=== PATIENT | female | born 1980 | race Caucasian/White ===

== ENCOUNTER 2022-10-29 10:33 | Emergency (ER) | payer BC, SELFPAY ==
[2022-10-29 10:52] VITALS: BP 142/93; PULSE 83; RESP 18; TEMP 37.3; O2SAT 100; BMI 29.5
[2022-10-29 11:46] LABS: SARS-CoV-2 Ag NEGATIVE (NEGATIVE)
--- NOTE | 2022-10-29 14:13 | ED.GENADUL1 ---
HPI - General Adult General Chief complaint: Upper Respiratory Infection Stated complaint: HEADACHE, FEVER Time Seen by Provider: 10/29/22 13:12 Source: patient Mode of arrival: walk-in History of Present Illness HPI narrative: Patient is a 41-year-old female who is presenting to the Emergency Room with chief complaint of flulike symptoms. Patient's had a fever yesterday and today, patient's been lightheaded, dizzy, nausea yesterday and today with no vomiting. Patient does have a history of anemia, patient had a hysterectomy 2 years ago because of heavy bleeding. Patient drove to the accident. Patient was at a urgent care yesterday, patient had, testing and influenza test and it was negative yesterday. Patient has headache that is moderate pain, approximate 7/8-10. Patient's headache was not the worse headache of her life, not sudden onset, not thunderclap in nature. Patient took Tylenol this morning with no relief. Patient has right-sided neck pain. No chest pain or shortness of breath. Nausea no vomiting, diarrhea positive. 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 . All systems are negative except as noted/marked. All systems reviewed and otherwise negative. . Nurses note and vital signs reviewed and patient is not hypoxic. General: The patient appears well and in no apparent distress. Patient is resting comfortably on cart. Patient is not toxic, lethargic, or listless Skin: Warm, dry, + pallor noted. There is no rash noted. No petechiae, purpura. Head: Normocephalic, atraumatic, Patient has mild tenderness to palpation to the right paralumbar soft tissue. Full range of motion of cervical spine with minimal pain. No meningeal signs or symptoms. Eye: + pale conjunctiva, no drainage, EOMI. PERRL. Ears, Nose, Mouth, and Throat: oral mucosa is moist. Nares patent. Mouth without vesicles. Patient has pale mucous membranes underneath her tongue as well. Cardiovascular: Regular Rate and Rhythm, no murmur, gallop, rub Respiratory: Patient is in no distress, no accessory muscle use, lungs are clear to auscultation, no wheezing, rales or rhonchi Back: non-tender, no CVA tenderness bilaterally to percussion. No CT LS midline pain GI: soft, no tenderness to palpation, no masses appreciated. No rebound, guarding, or rigidity noted. No flank pain bilateral, No distention Musculoskeletal: Patient has full range of motion of all of the extremities, no motor, sensory, or focal neurological deficits Neurological: A&O x3, normal speech Psychiatric: Cooperative Related Data Previous Rx's Medication Instructions Recorded metoclopramide HCl 10 mg tablet 10 mg PO Q6H PRN nausea and 10/29/22 (Reglan) vomiting 3 days #7 tabs Allergies Allergy/AdvReac Type Severity Reaction Status Date / Time cephalexin [From Keflex] AdvReac Intermediate Verified 10/29/22 10:52 Exam Constitutional Vital Signs, click to edit/add: Last Vital Signs Temp 99.2 F 10/29/22 10:52 Pulse 83 10/29/22 10:52 Resp 18 10/29/22 10:52 BP 142/93 H 10/29/22 10:52 Pulse Ox 100 10/29/22 10:52 O2 Del Method Room Air 10/29/22 10:52 Course Vital Signs Vital signs: Vital Signs Temperature 99.2 F 10/29/22 10:52 Pulse Rate 83 10/29/22 10:52 Respiratory Rate 18 10/29/22 10:52 Blood Pressure 142/93 H 10/29/22 10:52 Pulse Oximetry 100 10/29/22 10:52 Oxygen Delivery Method Room Air 10/29/22 10:52 Temperature 99.2 F 10/29/22 10:52 Pulse Rate 83 10/29/22 10:52 Respiratory Rate 18 10/29/22 10:52 Blood Pressure 142/93 H 10/29/22 10:52 Pulse Oximetry 100 10/29/22 10:52 Oxygen Delivery Method Room Air 10/29/22 10:52 Medical Decision Making [facility] Narrative Medical decision making narrative: Patient has a history of anemia, she does not take iron daily. Patient looks well, has pale conjunctiva, lids, and mucous membranes underneath her tongue. Secondary to having headache, patient had IV established. Patient will be given IV fluids, IV Toradol, Tylenol, and help relieve her symptoms. Patient does have myalgia and arthralgia. Patient's nausea is improved. Patient's headache is improved. Patient is not anemic despite looking pale. Patient's potassium was 3.3, she was given oral potassium to drink. Patient was sent home with prescription for Reglan. Patient will follow-up with PCP. No questions at discharge Lab Data Lab results reviewed: Yes I reviewed the patient's lab results Labs: Lab Results 10/29/22 10/29/22 Range/Units 11:00 14:25 WBC 4.0 (4.0-11.0) 10^3/uL RBC 4.18 L (4.20-5.40) 10^6/uL Hgb 11.9 L (12.0-16.0) g/dL Hct 36.7 (36.0-48.0) % MCV 87.8 (81.0-99.0) fL MCH 28.5 (26.7-34.0) pg MCHC 32.4 (29.9-35.2) g/dL RDW 14.0 (11.0-15.0) % Plt Count 127 L (150-450) 10^3/uL MPV 10.3 (9.5-13.5) fL Neut % (Auto) 63.2 (43.0-75.0) % Lymph % (Auto) 27.4 (20.5-60.0) % [place] % (Auto) 7.0 (1.7-12.0) % Eos % (Auto) 1.5 (0.9-7.0) % Baso % (Auto) 0.7 (0.2-2.0) % Neut # (Auto) 2.5 (1.4-6.5) 10^3/uL Lymph # (Auto) 1.1 L (1.2-3.8) 10^3/uL [place] # (Auto) 0.3 (0.3-0.8) 10^3/uL Eos # (Auto) 0.1 (0.0-0.7) 10^3/uL Baso # (Auto) 0.0 (0.0-0.1) 10^3/uL Abs Immat Gran (auto) 0.01 (0.00-0.03) 10^3/uL Imm/Tot Granulo (auto) 0.2 (0.0-0.5) % Sodium 138 (136-145) mmol/L Potassium 3.3 L (3.5-5.1) mmol/L Chloride 106 (98-107) mmol/L Carbon Dioxide 27.1 (21.0-32.0) mmol/L Anion Gap 8.2 BUN 11.0 (7.0-18.0) mg/dL Creatinine 0.63 (0.55-1.02) mg/dL Est GFR ( Amer) >60 (>=60) Est GFR (Non-Af Amer) >60 (>=60) BUN/Creatinine Ratio 17.5 Glucose 80 (74-106) mg/dL Calcium 8.8 (8.5-10.1) mg/dL Magnesium 2.1 (1.8-2.4) mg/dL Total Bilirubin 0.4 (0.2-1.0) mg/dL AST 22 (15-37) U/L ALT 20 (14-59) U/L Alkaline Phosphatase 57 (46-116) U/L Total Protein 6.5 (6.4-8.2) g/dL Albumin 3.4 (3.4-5.0) g/dL Globulin 3.1 g/dL Albumin/Globulin Ratio 1.1 SARS-CoV-2 (PCR) Negative (NEGATIVE) Discharge Plan Discharge Chief Complaint: Upper Respiratory Infection Clinical Impression: Headache, Flu-like symptoms, Nausea Patient Disposition: Home, Self-Care Condition: Fair Prescriptions / Home Meds: New metoclopramide HCl [Reglan] 10 mg tablet 10 mg PO Q6H PRN (Reason: nausea and vomiting) 3 Days Qty: 7 0RF Instructions: Acute Headache (ED), Acute Nausea and Vomiting (DC), Cold Symptoms (ED) Additional Instructions: Continue to increase fluids. Use Tylenol or Motrin as needed for pain. Use Reglan as needed for nausea, vomiting, or headache. Stand Alone Forms: Portal Instructions Referrals: АЛЕКСАНДР SELBY [Primary Care Provider] - 1 week
[2022-10-29] MEDS: 0.9 % SODIUM CHLORIDE 1,000 ML 999 ML IV (14:27)
[2022-10-29] MEDS: KETOROLAC TROMETHAMINE 30 MG/ML VIAL 15 MG IVP (14:28)
[2022-10-29] MEDS: METOCLOPRAMIDE HCL 10 MG/2 ML VIAL IVP (14:29)
[2022-10-29] MEDS: ACETAMINOPHEN 500 MG TABLET PO (14:29)
[2022-10-29 14:58] LABS: Basophils Percent Auto 0.7 % (0.2-2.0); Eosinophils Absolute Auto 0.1 10^3/uL (0.0-0.7); Eosinophils Percent Auto 1.5 % (0.9-7.0); Hematocrit 36.7 % (36.0-48.0); Hemoglobin 11.9 g/dL (12.0-16.0); Immature Granulocytes Abs Auto 0.01 10^3/uL (0.00-0.03); Immature Granulocytes Pct Auto 0.2 % (0.0-0.5); Lymphocytes Absolute Auto 1.1 10^3/uL (1.2-3.8); Lymphocytes Percent Auto 27.4 % (20.5-60.0); Mean Corpuscular HGB Conc 32.4 g/dL (29.9-35.2); Mean Corpuscular Hemoglobin 28.5 pg (26.7-34.0); Mean Corpuscular Volume 87.8 fL (81.0-99.0); Mean Platelet Volume 10.3 fL (9.5-13.5); Monocytes Absolute Auto 0.3 10^3/uL (0.3-0.8); Neutrophils Absolute Auto 2.5 10^3/uL (1.4-6.5); Neutrophils Percent Auto 63.2 % (43.0-75.0); Platelet Count 127 10^3/uL (150-450); Red Blood Count 4.18 10^6/uL (4.20-5.40)
[2022-10-29 15:13] LABS: Alanine Aminotransferase 20 U/L (14-59); Albumin Globulin Ratio 1.1; Albumin Level 3.4 g/dL (3.4-5.0); Alkaline Phosphatase 57 U/L (46-116); Anion Gap 8.2; Aspartate Amino Transferase 22 U/L (15-37); BUN Creatinine Ratio 17.5; Bilirubin Total 0.4 mg/dL (0.2-1.0); Calcium 8.8 mg/dL (8.5-10.1); Carbon Dioxide 27.1 mmol/L (21.0-32.0); Chloride 106 mmol/L (98-107); Estimated GFR (African America >60 (>=60); Estimated GFR (Non-African Ame >60 (>=60); Globulin 3.1 g/dL; Glucose 80 mg/dL (74-106); Magnesium 2.1 mg/dL (1.8-2.4); Potassium 3.3 mmol/L (3.5-5.1); Sodium 138 mmol/L (136-145); Total Protein 6.5 g/dL (6.4-8.2)
[2022-10-29] MEDS: POTASSIUM BICARBONATE/CIT 25 MEQ TABLET EFF 50 MEQ PO (15:40)
[2022-10-29 16:20] LABS: SARS-CoV-2 NAA INVALID (NOT DETECTE)
== END 2022-10-29 15:45 | disposition home or self-care (01) ==
PROVIDERS: Emergency Provider Emergency Medicine; PCP Nurse Practitioner Family
DX: R51.9 Headache, unspecified (principal); R11.0 Nausea; Z90.710 Acquired absence of both cervix and uterus; Z20.822 Contact with and (suspected) exposure to COVID-19
CPT/HCPCS: 36415; 80053; 83735; 85025; 87635; 87811; 96361; 96374; 96375; 99284; U0003

== ENCOUNTER 2023-06-25 15:31 | Emergency (ER) | payer OTHER, SELFPAY ==
[2023-06-25] VITALS (11 sets, daily range): BP systolic 101–140; BP diastolic 55–87; PULSE 67–101; TEMP 36.8; O2SAT 98–100; BMI 28.4
--- NOTE | 2023-06-25 16:19 | ECG_ITS ---
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
[2023-06-25] MEDS: 0.9 % SODIUM CHLORIDE 1,000 ML 1000 ML IV (16:32)
--- NOTE | 2023-06-25 16:33 | ED.GENADUL1 ---
HPI HPI - General Adult General Chief complaint: Fall Stated complaint: Syncope Time Seen by Provider: 06/25/23 16:18 Source: patient Mode of arrival: walk-in History of Present Illness HPI narrative: Patient is a 42-year-old female who presents to the emergency department for syncopal episode with head injury at home. Patient states she gets dizzy on a daily to every other daily basis. She has never been evaluated for the dizziness previously. She states that she stood up from the couch prior to arrival when she had a syncopal episode lasting several seconds and fell, striking her head on the floor. This was witnessed by her . She denies chest pain, shortness of breath. She states she had a mild global headache prior to the syncopal episode. She has had no fevers, upper respiratory illness, vomiting or urinary symptoms. She has had a previous hysterectomy. No cough or hemoptysis. She has not had any numbness, tingling, swelling in the extremities. Patient states when she had the syncopal episode, her noted that her arms were curled and she was shaking. Related Data Home Medications ?Medication ?Instructions ?Recorded ?Confirmed pantoprazole 40 mg tablet,delayed 40 mg PO DAILY 06/25/23 06/25/23 release Previous Rx's ?Medication ?Instructions ?Recorded [id number]-[id number] 1 cap PO Q6H PRN headache #12 caps 06/25/23 50 mg-300 mg-40 mg capsule (Fioricet) ketorolac 10 mg tablet 10 mg PO TID PRN pain #10 tabs 06/25/23 ondansetron 4 mg disintegrating 4 mg PO Q6H PRN nausea and 06/25/23 tablet vomiting #12 tabs Allergies Allergy/AdvReac Type Severity Reaction Status Date / Time cephalexin [From Keflex] AdvReac Intermediate Verified 10/29/22 10:52 Opioid HPI Opioid Management Most Recent Opioid Data: Last Pain Scale 6 06/25/23 16:51 Last ED Pain Assessment 06/25/23 16:51 Last MAR Pain Assessment 06/25/23 16:39 Review of Systems ROS Constitutional Denies: fever or chills Eyes Denies: change in vision or blurry vision Ears, nose, mouth, and throat Denies: throat pain or nasal congestion Cardiovascular Denies: chest pain Respiratory Denies: shortness of breath, cough or coughing up blood Gastrointestinal Denies: nausea or vomiting Musculoskeletal Denies: back pain, neck pain, extremity pain, extremity swelling or joint pain Integumentary/Breast Denies: rash Neurological Reports: headache and dizziness; Denies: numbness in extremities or weakness in extremities Hematologic/Lymphatic Denies: easy bruising or easy bleeding [facility] Surgical History (Updated 06/25/23 @ 16:49 by Lamont Smith) History of hysterectomy ?Z90.710 - Acquired absence of both cervix and uterus (ICD-10) Exam Narrative Exam Narrative: Gen.: Awake, alert, in no distress Head: Normocephalic, atraumatic ENT: Moist mucous membranes, No facial or dental injury, no tenderness of the C-spine Respiratory: No respiratory distress, lungs clear bilaterally Cardio: Regular rate and rhythm Extremities: Moves extremities equally, no injuries noted Psych: Normal mood and affect Neuro: No focal neuro deficit Skin: Warm, dry, intact Constitutional Vital Signs, click to edit/add: Last Vital Signs Temp 98.2 F 06/25/23 15:41 Pulse 72 06/25/23 18:00 Resp 20 06/25/23 18:00 BP 116/67 06/25/23 18:00 Pulse Ox 100 06/25/23 18:00 O2 Del Method Room Air 06/25/23 16:50 Course Vital Signs Vital signs: Vital Signs Temperature 98.2 F 06/25/23 15:41 Pulse Rate 101 H 06/25/23 15:41 Respiratory Rate 15 06/25/23 15:41 Blood Pressure 140/87 06/25/23 15:41 Pulse Oximetry 100 06/25/23 15:41 Oxygen Delivery Method Room Air 06/25/23 15:41 Temperature 98.2 F 06/25/23 15:41 Pulse Rate 72 06/25/23 18:00 Respiratory Rate 20 06/25/23 18:00 Blood Pressure 116/67 06/25/23 18:00 Pulse Oximetry 100 06/25/23 18:00 Oxygen Delivery Method Room Air 06/25/23 16:50 Medical Decision Making MDM Narrative Medical decision making narrative: Patient treated with IV fluids, sent for CTs of the head and C-spine which are unremarkable as well as lab studies which are within normal limits. Patient has no PE risk factors. She reported improvement of headache with Toradol and Zofran, although she did have return of headache with going to CT. She was able to ambulate to the bathroom with no new dizziness and a steady gait. She is discharged home with Toradol, Fioricet and Zofran. Closed head injury instructions given for home. She was also given a referral for neurology for her chronic dizziness. Return to the ER if symptoms change or worsen. Patient comfortable with treatment plan. Stable vital signs at discharge. Medical Records Medical records reviewed: Yes I reviewed the patient's medical records Lab Data Lab results reviewed: Yes I reviewed the patient's lab results Labs: Lab Results 06/25/23 06/25/23 Range/Units 16:33 17:52 WBC 7.5 (4.0-11.0) 10^3/uL RBC 4.55 (4.20-5.40) 10^6/uL Hgb 12.9 (12.0-16.0) g/dL Hct 39.4 (36.0-48.0) % MCV 86.6 (81.0-99.0) fL MCH 28.4 (26.7-34.0) pg MCHC 32.7 (29.9-35.2) g/dL RDW 13.9 (11.0-15.0) % Plt Count 196 (150-450) 10^3/uL MPV 10.1 (9.5-13.5) fL Neut % (Auto) 69.4 (43.0-75.0) % Lymph % (Auto) 22.5 (20.5-60.0) % [place] % (Auto) 5.8 (1.7-12.0) % Eos % (Auto) 1.5 (0.9-7.0) % Baso % (Auto) 0.5 (0.2-2.0) % Neut # (Auto) 5.2 (1.4-6.5) 10^3/uL Lymph # (Auto) 1.7 (1.2-3.8) 10^3/uL [place] # (Auto) 0.4 (0.3-0.8) 10^3/uL Eos # (Auto) 0.1 (0.0-0.7) 10^3/uL Baso # (Auto) 0.0 (0.0-0.1) 10^3/uL Abs Immat Gran (auto) 0.02 (0.00-0.03) 10^3/uL Imm/Tot Granulo (auto) 0.3 (0.0-0.5) % PT 10.4 (9.0-11.6) sec INR 0.98 Sodium 141 (136-145) mmol/L Potassium 4.5 (3.5-5.1) mmol/L Chloride 106 (98-107) mmol/L Carbon Dioxide 27.7 (21.0-32.0) mmol/L Anion Gap 11.8 BUN 20.0 H (7.0-18.0) mg/dL Creatinine 0.76 (0.55-1.02) mg/dL Est GFR ( Amer) >60 (>=60) Est GFR (Non-Af Amer) >60 (>=60) BUN/Creatinine Ratio 26.3 Glucose 102 (74-106) mg/dL Calcium 9.4 (8.5-10.1) mg/dL Total Bilirubin 0.3 (0.2-1.0) mg/dL AST 11 L (15-37) U/L ALT 22 (14-59) U/L Alkaline Phosphatase 53 (46-116) U/L Troponin I High Sens <4.0 L (4.0-51.3) pg/mL Total Protein 6.9 (6.4-8.2) g/dL Albumin 3.8 (3.4-5.0) g/dL Globulin 3.1 g/dL Albumin/Globulin Ratio 1.2 TSH 0.861 (0.358-3.740) uIU/mL Urine Color Yellow (YELLOW) Urine Clarity Clear (CLEAR) Urine pH 7.0 (5.0-9.0) Ur Specific [place] 1.020 (1.005-1.025) Urine Protein Negative (NEG/TRACE) mg/dL Urine Glucose (UA) Negative (NEGATIVE) mg/dL Urine Ketones Trace A (NEGATIVE) mg/dL Urine Occult Blood Negative (NEGATIVE) Urine Nitrite Negative (NEGATIVE) Urine Bilirubin Negative (NEGATIVE) Urine Urobilinogen 1.0 (0.2-1.0) EU/dL Ur Leukocyte Esterase Negative (NEGATIVE) Imaging Data CT scan - head: Attestation: I have reviewed the pertinent imaging results. Radiologist's impression: ITS Impressions Cervical Spine CT 06/25/23 17:29 IMPRESSION: Left posterior scalp soft tissue hematoma. No evidence of acute intracranial abnormality. No evidence of acute osseous abnormality of the cervical spine. Electronically authenticated by: MELISA ANGELA Date: 06/25/2023 18:[address] 06/25/23 17:29 IMPRESSION: Left posterior scalp soft tissue hematoma. No evidence of acute intracranial abnormality. No evidence of acute osseous abnormality of the cervical spine. Electronically authenticated by: MELISA ANGELA Date: 06/25/2023 18:23 ECG Data Attestation: I personally reviewed and interpreted this ECG as follows: (Normal sinus rhythm at a rate of 87, no acute ST elevation or ectopy. EKG reviewed by attending physician) Discharge Plan Discharge Stand Alone Forms: Portal Instructions Chief Complaint: Fall Clinical Impression: Dizziness, Closed head injury, Syncope Patient Disposition: Home, Self-Care Time of Disposition Decision: 18:38 Condition: Good Prescriptions / Home Meds: New ketorolac 10 mg tablet 10 mg PO TID PRN (Reason: pain) Qty: 10 0RF ondansetron 4 mg tablet,disintegrating 4 mg PO Q6H PRN (Reason: nausea and vomiting) Qty: 12 0RF [id number]-qqvy [Fioricet] 50-300-40 mg capsule 1 cap PO Q6H PRN (Reason: headache) Qty: 12 0RF No Action pantoprazole 40 mg tablet,delayed release (DR/EC) 40 mg PO DAILY Print Language: Bengali Instructions: Syncope (ED), Head Injury (ED), Dizziness (ED) Referrals: Sharath Drake DO [Physician] - As needed АЛЕКСАНДР SELBY [Primary Care Provider] - 1 week
[2023-06-25] MEDS: KETOROLAC TROMETHAMINE 30 MG/ML VIAL IVP (16:39)
[2023-06-25 16:40] LABS: Basophils Percent Auto 0.5 % (0.2-2.0); Eosinophils Absolute Auto 0.1 10^3/uL (0.0-0.7); Eosinophils Percent Auto 1.5 % (0.9-7.0); Hematocrit 39.4 % (36.0-48.0); Hemoglobin 12.9 g/dL (12.0-16.0); Immature Granulocytes Abs Auto 0.02 10^3/uL (0.00-0.03); Immature Granulocytes Pct Auto 0.3 % (0.0-0.5); Lymphocytes Absolute Auto 1.7 10^3/uL (1.2-3.8); Lymphocytes Percent Auto 22.5 % (20.5-60.0); Mean Corpuscular HGB Conc 32.7 g/dL (29.9-35.2); Mean Corpuscular Hemoglobin 28.4 pg (26.7-34.0); Mean Corpuscular Volume 86.6 fL (81.0-99.0); Mean Platelet Volume 10.1 fL (9.5-13.5); Monocytes Absolute Auto 0.4 10^3/uL (0.3-0.8); Monocytes Percent Auto 5.8 % (1.7-12.0); Neutrophils Absolute Auto 5.2 10^3/uL (1.4-6.5); Neutrophils Percent Auto 69.4 % (43.0-75.0); Platelet Count 196 10^3/uL (150-450); Red Blood Count 4.55 10^6/uL (4.20-5.40); Red Cell Distribution Width 13.9 % (11.0-15.0); White Blood Count 7.5 10^3/uL (4.0-11.0)
[2023-06-25] MEDS: ONDANSETRON PF 4 MG/2 ML VIAL IV (16:40)
[2023-06-25 16:55] LABS: INR 0.98; Prothrombin Time 10.4 sec (9.0-11.6)
[2023-06-25 17:25] LABS: Alanine Aminotransferase 22 U/L (14-59); Albumin Globulin Ratio 1.2; Albumin Level 3.8 g/dL (3.4-5.0); Alkaline Phosphatase 53 U/L (46-116); Anion Gap 11.8; Aspartate Amino Transferase 11 U/L (15-37); BUN Creatinine Ratio 26.3; Bilirubin Total 0.3 mg/dL (0.2-1.0); Calcium 9.4 mg/dL (8.5-10.1); Carbon Dioxide 27.7 mmol/L (21.0-32.0); Chloride 106 mmol/L (98-107); Estimated GFR (African America >60 (>=60); Estimated GFR (Non-African Ame >60 (>=60); Globulin 3.1 g/dL; Glucose 102 mg/dL (74-106); Potassium 4.5 mmol/L (3.5-5.1); Sodium 141 mmol/L (136-145); Thyroid Stimulating Hormone 0.861 uIU/mL (0.358-3.740); Total Protein 6.9 g/dL (6.4-8.2); Troponin I High Sensitivity <4.0 pg/mL (4.0-51.3)
--- NOTE | 2023-06-25 17:29 | CT_ITS ---
The [address] [address] Patient Name: NILES REES MRN: [id number] date: 1980 Sex: F Assigned Patient Location: ER Current Patient Location: ER Accession/Order Number: [id number] Exam Date: 06/25/2023 17:22 Report Date: 06/25/2023 18:23 At the request of: FREDY BRUNSON Procedure: CT cervical spine wo con EXAM: CT cervical spine wo con, CT head/brain wo con COMPARISON: None available. CLINICAL INFORMATION: Fall, pain. TECHNIQUE: Axial noncontrast images were obtained through the brain and cervical spine with sagittal and coronal reconstructions. Dose reduction techniques were achieved by using automated exposure control and/or adjustment of mA and/or kV according to patient size and/or use of iterative reconstruction technique. FINDINGS: CT head: BRAIN: No intracranial hemorrhage. No extra-axial collection. No mass or mass effect. No midline shift. [place]-white matter differentiation is preserved. CSF: Ventricles and sulci appropriate for age. Basal cisterns are patent. ORBITS: Visualized orbital structures are unremarkable. SINUSES AND MASTOID AIR CELLS: Paranasal sinuses are clear. Mastoid air cells are clear. BONES: No acute osseous abnormality. SOFT TISSUES: Left posterior scalp soft tissue hematoma. CT C-spine: Straightening of the normal cervical lordosis, may be positional or may suggest muscle spasm. No CT evidence of acute osseous abnormality. No prevertebral soft tissue swelling. No spondylolisthesis. Mild-moderate degenerative disc disease from C5 through C7. Mild spinal canal narrowing from C5 through C7. Mild right foraminal narrowing from C5 through C7. No acute findings in the visualized upper chest. CT/CT cervical spine wo con IMPRESSION: Left posterior scalp soft tissue hematoma. No evidence of acute intracranial abnormality. No evidence of acute osseous abnormality of the cervical spine. Electronically authenticated by: MELISA ANGELA Date: 06/25/2023 18:23
--- NOTE | 2023-06-25 17:29 | CT_ITS ---
[address] [address] Patient Name: NILES REES MRN: [id number] date: 1980 Sex: F Assigned Patient Location: ER Current Patient Location: ER Accession/Order Number: [id number] Exam Date: 06/25/2023 17:22 Report Date: 06/25/2023 18:23 At the request of: FREDY BRUNSON Procedure: CT head/brain wo con EXAM: CT cervical spine wo con, CT head/brain wo con COMPARISON: None available. CLINICAL INFORMATION: Fall, pain. TECHNIQUE: Axial noncontrast images were obtained through the brain and cervical spine with sagittal and coronal reconstructions. Dose reduction techniques were achieved by using automated exposure control and/or adjustment of mA and/or kV according to patient size and/or use of iterative reconstruction technique. FINDINGS: CT head: BRAIN: No intracranial hemorrhage. No extra-axial collection. No mass or mass effect. No midline shift. [place]ales-white matter differentiation is preserved. CSF: Ventricles and sulci appropriate for age. Basal cisterns are patent. ORBITS: Visualized orbital structures are unremarkable. SINUSES AND MASTOID AIR CELLS: Paranasal sinuses are clear. Mastoid air cells are clear. BONES: No acute osseous abnormality. SOFT TISSUES: Left posterior scalp soft tissue hematoma. CT C-spine: Straightening of the normal cervical lordosis, may be positional or may suggest muscle spasm. No CT evidence of acute osseous abnormality. No prevertebral soft tissue swelling. No spondylolisthesis. Mild-moderate degenerative disc disease from C5 through C7. Mild spinal canal narrowing from C5 through C7. Mild right foraminal narrowing from C5 through C7. No acute findings in the visualized upper chest. CT/CT head/brain wo con IMPRESSION: Left posterior scalp soft tissue hematoma. No evidence of acute intracranial abnormality. No evidence of acute osseous abnormality of the cervical spine. Electronically authenticated by: MELISA ANGELA Date: 06/25/2023 18:23
[2023-06-25 18:23] LABS: Bilirubin Urine NEGATIVE (NEGATIVE); Blood Urine NEGATIVE (NEGATIVE); Clarity Urine CLEAR (CLEAR); Color Urine YELLOW (YELLOW); Glucose Urine UA NEGATIVE (NEGATIVE); Ketones Urine TRACE mg/dL (NEGATIVE); Leukocyte Esterase Urine NEGATIVE (NEGATIVE); Nitrite Urine NEGATIVE (NEGATIVE); Protein Urine NEGATIVE (NEG/TRACE)
[2023-06-25 18:30] LABS: Urine Microscopic Indicated NO
== END 2023-06-25 19:12 | disposition home or self-care (01) ==
PROVIDERS: Physician Assistant; Emergency Provider Emergency Medicine; PCP Nurse Practitioner Family
DX: S09.8XXA Other specified injuries of head, initial encounter (principal); R55 Syncope and collapse; R42 Dizziness and giddiness; W19.XXXA Unspecified fall, initial encounter; Z90.710 Acquired absence of both cervix and uterus; Z79.899 Other long term (current) drug therapy
CPT/HCPCS: 36415; 70450; 72125; 80053; 81003; 84443; 84484; 85025; 85610; 93005; 96361; 96374; 96375; 99285